=== PATIENT | female | born 1975 | race Caucasian/White ===

== ENCOUNTER 2016-09-09 09:39 | Outpatient (CLI) | payer OTHER ==
[~2016-09-09] VITALS: Ht 154.9 cm; Wt 89.1 kg
[~2016-09-09 09:39] MED LIST: IBUP-1542 PO; Lanolin TOP
[2016-09-09 09:47] VITALS: Ht 154.9 cm; Wt 89.1 kg
[2016-09-09 09:48] VITALS: BP 106/66
[2016-09-09] MEDS ORDERED: PREN1TAB17 PO (09:51)
[2016-09-09 11:53] LABS: ADD SCAN DIFF NO
[2016-09-09 11:56] LABS: BASOPHILS % 0.1 % (0.0-2.0); EOSINOPHILS # 0.1 10^3/ul (0.0-0.5); EOSINOPHILS % 0.9 % (0.0-7.0); HEMOGLOBIN 10.1 g/dl (12.0-16.0); LYMPHOCYTES # 1.9 10^3/ul (0.8-2.9); LYMPHOCYTES % 20.8 % (15.0-51.0); MEAN CORPUSCULAR HEMOGLOBIN 28.1 pg (29.0-33.0); MEAN CORPUSCULAR HGB CONC 33.7 g/dl (32.0-37.0); MEAN CORPUSCULAR VOLUME 83.3 fl (82.0-101.0); MEAN PLATELET VOLUME 9.7 fl (7.4-10.4); MONOCYTE # 0.6 10^3/ul (0.3-0.9); MONOCYTES % 6.7 % (0.0-11.0); NEUTROPHIL # 6.4 10^3/ul (1.6-7.5); NEUTROPHILS % 70.5 % (39.0-77.0); PLATELET COUNT 288 10^3/UL (140-415); RED CELL DISTRIBUTION WIDTH 14.1 % (11.5-14.5)
--- NOTE | 2016-09-09 12:29 | RADRPT ---
PROCEDURE: OB ultrasound for biophysical profile CLINICAL INDICATION: Back pain TECHNIQUE: Multiple sonographic images of the pelvis were obtained. Transabdominal views of the g ravid uterus are available for review. The images were reviewed on a PACS workstation. COMPARISON: None FINDINGS: breathing movement = 2/2 tone = 2/2 motion = 2/2 LIANG = 2/2 LIANG = 17.6 cm Single live intrauterine with cardiac activity of 147 bpm. position is transv erse with head to the maternal right. The placenta is posterior. IMPRESSION: 1. Single live intrauterine gestation. 2. Biophysical profile = 8/8. 3. LIANG = 17.6 cm. RPTAT: HH .Leia Llanes MD, Date Time Electronically viewed and signed by .Leia Llanes MD, on 09/09/2016 12:29 .G/
[2016-09-09 12:44] LABS: ADD UMIC NO; URINE BILIRUBIN (Dip) NEGATIVE (NEGATIVE); URINE BLOOD (Dip) NEGATIVE (NEGATIVE); URINE COLOR LT. YELLOW (YELLOW); URINE GLUCOSE (Dip) NEGATIVE (NEGATIVE); URINE KETONES (Dip) NEGATIVE (NEGATIVE); URINE LEUKOCYTE ESTERASE (Dip) NEGATIVE (NEGATIVE); URINE NITRITE (Dip) NEGATIVE (NEGATIVE); URINE TOTAL PROTEIN (Dip) NEGATIVE (NEGATIVE); URINE UROBILINOGEN (Dip) 0.2 E.U./dL (0.1-1.0)
--- NOTE | 2016-09-09 13:29 | TRIAGE ---
OB Triage Datetime Report Generated by CPN: 09/09/2016 13:29 Datetime: 09/09/2016 13:17 Labor Evaluation Frequency: 0 Monitor Mode: External Resting Tone [place]: Relaxed Heart Rate FHR Baseline Rate: 125 Monitor Mode: External US Accelerations: 15X15 Decelerations: None Category: Category I Datetime: 09/09/2016 12:22 Monitor Mode: External US Comments: AT BEDSIDE ADJUSTING US Datetime: 09/09/2016 11:39 Monitor Mode: External US Datetime: 09/09/2016 10:38 Labor Evaluation Frequency: 0 Monitor Mode: External Pattern: Normal: <= 5 Contractions in 10 Minutes Resting Tone [place]: Relaxed Heart Rate FHR Baseline Rate: 135 Variability: Moderate 6-25 bpm Accelerations: 15X15 Decelerations: None Category: Category I Pain Assessment Pain Scale: 6 Pain Presence: Intermittent Pain Type: Ache Pain Location: Back Pain Goal: 3 Pain Relief Measures: Comfort Measures Datetime: 09/09/2016 10:08 EGA: 30.1 Time Provider Notified: 09/09/2016 11:17 Datetime: 09/09/2016 09:53 Stage of : OB Triage Assessment Type: Triage Maternal Assessment Level of Consciousness: Fully Conscious DTR's/Clonus: DTRs 2+; No Clonus Headache: Denies Blurred Vision: No Respiratory Effort: Unlabored; Regular Rhythm; Equal Expansion Breath Sounds, Left: Clear and Equal Breath Sounds, Right: Clear and Equal Nausea/Vomiting: Denies RUQ Epigastric Pain: Denies Lower Extremities Edema: None Degree: None Upper Extremities Edema: None Degree: None Facial Edema: None Temperature Route: Oral Fall Risk Assessment History of Falling: (0) No Secondary Diagnosis: (0) No Ambulatory Aid: (0) Bedrest/Nurse Assist IV Therapy: (0) No Gait: (0) Normal/Bedrest/Immobile Mental Status: (0) Oriented to Own Ability Fall Score: 0 Fall Risk Score Definition: No Risk: No action required Monitor Mode: External Pattern: Normal: <= 5 Contractions in 10 Minutes Resting Tone [place]: Relaxed Heart Rate FHR Baseline Rate: 135 Monitor Mode: External US Category: Category I Pain Assessment Pain Scale: 6 Pain Presence: Intermittent Pain Type: Ache Pain Location: Back Pain Goal: 3 Pain Relief Measures: Comfort Measures Datetime: 09/09/2016 09:51 Time of Arrival: 09/09/2016 09:38 Arrived By: Ambulatory Arrived From: Home Chief Complaint: BACK PAIN Movement: Present Rupture of Membranes: Denies Vaginal Bleeding: None Vaginal Discharge: Denies Recent Sexual Intercouse: Denies Abdominal Trauma: Not Applicable Patient Complaints: Back Pain Additional Patient Complaints: EFM. CALL OB Time Provider Notified: 09/09/2016 11:17 Provider Notified: DR. LOZOYA Initial Plan: CBC, BPP/AFR UA C/S
== END 2016-09-09 13:40 | disposition home or self-care (01) ==
LOC: OBT 09:39 → L-D 09:40 → OBT 13:40
PROVIDERS: ATTEND Obstetrics & Gynecology
DX: O26.893 Other specified pregnancy related conditions, third trimester (principal); M54.9 Dorsalgia, unspecified; Z3A.30 30 weeks gestation of pregnancy
CPT/HCPCS: 36415; 76818; 81003; 85025; 87086; Z7500; G0463

== ENCOUNTER 2016-11-06 01:58 | Inpatient (IN) | payer OTHER ==
[~2016-11-06] VITALS: Ht 165.1 cm; Wt 90.0 kg
[~2016-11-06 01:58] MED LIST changes: -IBUP-1542 PO; -Lanolin TOP; +PREN1TAB17 PO
[2016-11-06 02:10] VITALS: RESP 20
[2016-11-06 02:13] VITALS: BP 133/73; PULSE 83
--- NOTE | 2016-11-06 02:29 | TRIAGE ---
OB Triage Datetime Report Generated by CPN: 11/06/2016 02:29 Datetime: 11/06/2016 02:20 Assessment Type: Admission Assessment Time of Arrival: 11/06/2016 01:55 EGA: 38.3 Arrived By: Stretcher; Ambulance Arrived From: Home Chief Complaint: w/ c/s x 2 to OB triage by ambulance stretcher extremely uncomfortable w/ sr om large amt clear fluid Movement: Present Contractions: Regular Rupture of Membranes: Ruptured Vaginal Bleeding: None Vaginal Discharge: Present Recent Sexual Intercouse: Denies Abdominal Trauma: Not Applicable Patient Complaints: Contractions Time Provider Notified: 11/06/2016 02:10 Provider Notified: Dr Dickerson Maternal Assessment Level of Consciousness: Fully Conscious DTR's/Clonus: DTRs 2+; No Clonus Headache: Denies Blurred Vision: No Respiratory Effort: Unlabored; Regular Rhythm; Equal Expansion Breath Sounds, Left: Clear and Equal Breath Sounds, Right: Clear and Equal Nausea/Vomiting: Denies RUQ Epigastric Pain: Denies Lower Extremities Edema: None Degree: None Upper Extremities Edema: None Degree: None Facial Edema: None Fall Risk Assessment History of Falling: (0) No Secondary Diagnosis: (0) No Ambulatory Aid: (0) Bedrest/Nurse Assist IV Therapy: (0) No Gait: (0) Normal/Bedrest/Immobile Mental Status: (0) Oriented to Own Ability Fall Score: 0 Fall Risk Score Definition: No Risk: No action required Pain Assessment Pain Scale: 10 Pain Presence: Intermittent Pain Type: Contraction Pain Location: Abdomen; Back Pain Goal: 2 Vaginal Exam Membrane Status: Ruptured Datetime: 09/09/2016 10:08 Time of Arrival: 11/06/2016 02:19 EGA: 38.3 Arrived By: Ambulance Datetime: 09/09/2016 09:53 Fall Score: 0 Fall Risk Score Definition: No Risk: No action required
[2016-11-06 02:30] LABS: ADD SCAN DIFF NO
[2016-11-06] MEDS ORDERED: METHYLERGONOVINE 0.2 MG INJ IM PRN ×2 (02:30→19:00)
[2016-11-06] MEDS ORDERED: CEFAZOLIN 2 GM/50 ML (PMX) 50 ML IV SCH (02:30)
[2016-11-06] MEDS ORDERED: ONDANSETRON 4 MG INJ IV ONE ×2 (02:30→03:30)
[2016-11-06] MEDS ORDERED: METOCLOPRAMIDE 10 MG INJ IV ONE ×2 (02:30→03:30)
[2016-11-06] MEDS ORDERED: CARBOPROST 250 MCG INJ IM PRN ×2 (02:30→19:00)
[2016-11-06] MEDS ORDERED: OXYTOCIN 30 UNITS/LR 500 ML IV PRN ×2 (02:30→19:00)
[2016-11-06] MEDS ORDERED: CITRIC ACID/NA CITRATE 30 ML CUP PO ONE ×2 (02:30→03:30)
[2016-11-06] MEDS ORDERED: MISOPROSTOL 200 MCG TAB PR PRN ×2 (02:30→19:00)
[2016-11-06] MEDS ORDERED: OXYTOCIN 30 UNITS/LR 500 ML IV SCH (02:30)
[2016-11-06 02:34] LABS: BASOPHILS % 0.2 % (0.0-2.0); EOSINOPHILS # 0.1 10^3/ul (0.0-0.5); EOSINOPHILS % 1.4 % (0.0-7.0); HEMATOCRIT 35.4 % (37.0-47.0); HEMOGLOBIN 11.8 g/dl (12.0-16.0); LYMPHOCYTES # 3.3 10^3/ul (0.8-2.9); LYMPHOCYTES % 31.9 % (15.0-51.0); MEAN CORPUSCULAR HEMOGLOBIN 27.1 pg (29.0-33.0); MEAN CORPUSCULAR HGB CONC 33.3 g/dl (32.0-37.0); MEAN CORPUSCULAR VOLUME 81.2 fl (82.0-101.0); MEAN PLATELET VOLUME 11.3 fl (7.4-10.4); MONOCYTE # 0.7 10^3/ul (0.3-0.9); MONOCYTES % 6.7 % (0.0-11.0); NEUTROPHIL # 6.1 10^3/ul (1.6-7.5); NEUTROPHILS % 59.1 % (39.0-77.0); PLATELET COUNT 295 10^3/UL (140-415); RED BLOOD COUNT 4.36 10^6/ul (4.20-5.40); RED CELL DISTRIBUTION WIDTH 14.3 % (11.5-14.5); WHITE BLOOD COUNT 10.3 10^3/ul (4.8-10.8)
[2016-11-06] MEDS ORDERED: CITRIC ACID/SODIUM CITRATE 15 ML CUP ONE (02:35)
[2016-11-06] MEDS: LACTATED RINGER'S 1,000 ML IV SCH ×3 (02:37→18:00)
[2016-11-06 02:44] LABS: INR 0.92; PARTIAL THROMBOPLASTIN TIME 24.7 Sec (25.0-35.0); PROTIME 12.4 Sec (12.2-14.2)
[2016-11-06] MEDS ORDERED: morphine SULFATE/PF (10 MG/10 ML) INJ ONE (03:01)
[2016-11-06] MEDS ORDERED: FENTAnyl 50 MCG/ML VIAL ONE (03:01)
[2016-11-06] MEDS ORDERED: EPHEDrine SULFATE 50 MG/5 ML SYG ONE (03:12)
[2016-11-06] MEDS ORDERED: LACTATED RINGER'S 1,000 ML IV ONE (03:17)
[2016-11-06] MEDS ORDERED: MEPERIDINE 25 MG INJ IV PRN (03:30)
[2016-11-06] MEDS ORDERED: KETOROLAC 30 MG INJ IV PRN ×3 (03:30)
[2016-11-06] MEDS ORDERED: ONDANSETRON 4 MG INJ IV PRN ×4 (03:30→19:00)
[2016-11-06] MEDS ORDERED: PROCHLORPERAZINE 10 MG INJ IV PRN ×3 (03:30)
[2016-11-06] MEDS ORDERED: HYDROmorphONE (0.2 MG/ML) 10ML SYG IV PRN (03:30)
[2016-11-06] MEDS ORDERED: FENTAnyl 50 MCG/ML VIAL IV PRN (03:30)
[2016-11-06] MEDS ORDERED: ZOLPIDEM 5 MG TAB PO PRN ×3 (03:30→19:00)
[2016-11-06] MEDS ORDERED: DIPHENHYDRAMINE 50 MG INJ IV PRN ×4 (03:30→19:00)
[2016-11-06] MEDS ORDERED: NALOXONE (0.4 MG/ML) INJ IV PRN ×2 (03:30)
[2016-11-06] MEDS ORDERED: HYDROmorphONE 1 MG/ML SYG IV PRN ×4 (03:30)
[2016-11-06] MEDS ORDERED: MIDAZOLAM 1 MG/ML 2 ML INJ ONE (03:32)
[2016-11-06] MEDS ORDERED: OXYTOCIN 30 UNITS/LR 500 ML IV ONE (03:50)
[2016-11-06 08:30] VITALS: BP 108/66; PULSE 70; RESP 18
[2016-11-06 12:00] VITALS: BP 95/60; PULSE 73; RESP 18
--- NOTE | 2016-11-06 13:01 | HP ---
Date/Time of Note Date/Time of Note DATE: 11/06/16 TIME: 12:55 OB - History Hx of Present Free Text/Dictation 40y.o at 38w3d who had X2 c/s srom with c/o severe pain, brought to triage via ambulance also desire to have tubal sterilization prepare to have RC/S and BTL Estimated Due Date: November 17, 2016 : 4 Para: 2 Spontaneous : 1 Therapeutic : 0 Care: Good Care Ultrasounds: Normal mid trimester US Obstetrical Complications: None Medical Complications: None Past Family/Social History * Past Medical, Surgical, Family and Obstetric Histories reviewed from chart. Blood Type: O+ Rubella: immune RPR/VDRL: Negative GBS Status: Negative HBsAG: Negative OB Admission Exam Vital Signs Vital Signs Vital Signs Date Time Temp Pulse Resp B/P Pulse Ox O2 Delivery O2 Flow Rate FiO2 11/06/16 02:13 83 133/73 11/06/16 02:10 98.0 20 Room Air Physical Exam HEENT: WNL Cervical Dilatation: None Effacement: 0% Membranes: Ruptured Amniotic Fluid: Clear Heart Rate: 140's Accelerations: Accelerations Present Varibility: Moderate Contractions on Admission: < 5 Minutes Apart Intensity: Moderate Last 72 hours Lab Results CBC & BMP 11/06/16 02:25 OB Assessment/Plan Other Assessment: IUP 38w3d X2 previous section srom desire to have tubal sterilization Plan: Section, Other (sterilization) SIMA GUTIÉRREZ MD November 06, 2016 13:01
--- NOTE | 2016-11-06 13:58 | OPR ---
DATE OF OPERATION: 11/06/2016 PREOPERATIVE DIAGNOSES: 1. , 38 weeks 3 days, with 2 previous sections and spontaneous rupture of membran es in early labor. 2. Multiparity for tubal sterilization. POSTOPERATIVE DIAGNOSES: 1. , 38 weeks 3 days, with 2 previous sections and spontaneous rupture of membran es in early labor. 2. Multiparity for tubal sterilization. 3. Delivered normal male , 4070 grams. PROCEDURE: Repeat low transverse section and the bilateral partial salpingectomy, fimbriec pavel. ANESTHESIA: Spinal. ANESTHESIOLOGIST: Dr. Rivera SURGEON: Janet Dickerson MD MOUNTER FLUTES AND PICCOLOS: Dr. Meza ESTIMATED BLOOD LOSS: Approximately 700 mL. PROCEDURE: Under proper induction of spinal anesthesia, the patient was placed in the frog position . Guevara catheter was introduced into the bladder and then repositioned to supine. Abdominal wall w as prepped and draped in usual aseptic manner. A transverse incision was made along the previous in cisional scar. Scar tissue was excised. Incision was carried down through the subcutaneous tissue to the anterior recti fascia which was incised transversely in length of the incision. Fascial flap was created by blunt and sharp dissection of tendinous attachment with difficulty due to the previo us 2 surgeries, and the rectus muscles and peritoneal cavity was entered. There was no si gnificant adhesion noted except the bladder peritoneum was pulled up to the uterine serosa, which wa s released by making an incision. It was made above the uterovesical reflection and the incision wa s carried down to reach the amniotic membrane, ruptured to reveal clear amniotic fluid. Incision was extended and a normal male was born from the left occiput transverse position. Mouth and nose were cleaned and cord was clamped and cut, handed to the respiratory care for further management. Cord blood was obtained. Placenta was removed manually. Cavity was completely explor ed and uterus was exteriorized, and uterine incision was closed with a #1 chromic catgut in continuo us manner and second layer using 0 chromic catgut in continuous manner. No bleeder noted. The righ t fallopian tube was grasped with a Tamara forceps and created loop of tube. This loop of tube was doubly ligated and the fimbria was separately clamped and cut and the loop of tube was excised. No bleeder noted. The same procedure was done on the left fallopian tube, backup was applied at the a vascular area in the mesosalpinx and created loop of tube. This loop of tube was doubly ligated wit h 0 plain and then fimbria was separately clamped and cut and the tied. No bleeder was noted. The uterus was relocated after the blood was removed from the operative field and sponge count taken which was correct. The parietal peritoneum was closed horizontally and during this closure, there was continuous bleeding from the muscle , which was the insertion area, and the rectus muscle i nsertion area which was not able to be controlled with multiple suture because of the muscle friabil ity. At this point, instead of closing the peritoneum, the parietal peritoneum opened and with the hands inside underneath the peritoneum and the muscle was attached to the fascia, which can be suppo rted between the parietal peritoneum and fascia, which was separately done. Then, the rest of the p arietal peritoneum was closed and the bleeding controlled. Fascia closed with #1 Vicryl in continuo us manner in 2 segments and subcutaneous tissue irrigated with water and this layer was approximated with 2-0 plain after adequate hemostasis was secured. The skin closed with a 3-0 Monocryl in a sub cuticular manner. Steri-Strip applied. A pressure dressing applied. Estimated blood loss approxim ately 700 mL. The patient withstood procedure and was sent to recovery in good condition. Dictated By: JANET DIAZ/FELIZ Conf#: [id number] DID#: [id number]
[2016-11-06 15:32] VITALS: BP 106/65; PULSE 64; RESP 19
[2016-11-06] MEDS ORDERED: LACTATED RINGER'S 1,000 ML IV SCH (18:31)
[2016-11-06] MEDS: OXYTOCIN 30 UNITS/LR 500 ML IV SCH (18:31)
[2016-11-06] MEDS ORDERED: LANOLIN 7 GM TUBE TOP PRN (19:00)
[2016-11-06 20:00] VITALS: BP 109/69; PULSE 87; RESP 18
[2016-11-07] VITALS: BP 107/78; PULSE 82; RESP 18
[2016-11-07] MEDS: OXYCODONE/ACETAMINOPHEN (5/325) TAB PO PRN ×3 (03:42→15:30)
[2016-11-07 04:00] VITALS: BP 119/72; PULSE 86; RESP 18
[2016-11-07] MEDS: IBUPROFEN 600 MG TAB PO SCH ×4 (06:31→23:38)
[2016-11-07 08:00] VITALS: BP 97/67; PULSE 80; RESP 18
[2016-11-07 08:21] LABS: ADD SCAN DIFF NO
[2016-11-07 08:34] LABS: BASOPHILS % 0.2 % (0.0-2.0); EOSINOPHILS % 0.2 % (0.0-7.0); HEMATOCRIT 31.6 % (37.0-47.0); HEMOGLOBIN 10.1 g/dl (12.0-16.0); LYMPHOCYTES # 1.8 10^3/ul (0.8-2.9); LYMPHOCYTES % 14.3 % (15.0-51.0); MEAN CORPUSCULAR HEMOGLOBIN 26.8 pg (29.0-33.0); MEAN CORPUSCULAR VOLUME 83.8 fl (82.0-101.0); MEAN PLATELET VOLUME 11.1 fl (7.4-10.4); MONOCYTE # 0.6 10^3/ul (0.3-0.9); MONOCYTES % 4.6 % (0.0-11.0); NEUTROPHIL # 10.3 10^3/ul (1.6-7.5); NEUTROPHILS % 80.1 % (39.0-77.0); PLATELET COUNT 261 10^3/UL (140-415); RED BLOOD COUNT 3.77 10^6/ul (4.20-5.40); RED CELL DISTRIBUTION WIDTH 14.9 % (11.5-14.5); WHITE BLOOD COUNT 12.8 10^3/ul (4.8-10.8)
[2016-11-07] MEDS: SENNA/DOCUSATE NA (8.6MG/50MG) TAB PO SCH ×2 (09:05→21:12)
[2016-11-07] MEDS: OXYTOCIN 30 UNITS/LR 500 ML IV SCH (10:05)
[2016-11-07 16:06] VITALS: BP 118/64; PULSE 75; RESP 18
[2016-11-07 19:30] VITALS: BP 104/68; PULSE 85; RESP 17
[2016-11-08] MEDS: OXYCODONE/ACETAMINOPHEN (5/325) TAB PO PRN ×4 (00:35→19:49)
--- NOTE | 2016-11-08 00:45 | QN ---
Documentation Comment pop day 1 afebrile ab soft bs presentext normal PAPO LOZOYA MD November 08, 2016 00:45
[2016-11-08 03:45] VITALS: BP 109/66; PULSE 82; RESP 18
[2016-11-08] MEDS: IBUPROFEN 600 MG TAB PO SCH ×4 (05:41→23:46)
[2016-11-08] MEDS: SENNA/DOCUSATE NA (8.6MG/50MG) TAB PO SCH ×2 (08:41→20:40)
[2016-11-08 08:45] VITALS: BP 122/75; PULSE 87; RESP 16
[2016-11-08 16:00] VITALS: BP 128/79; PULSE 74; RESP 16
[2016-11-08] MEDS ORDERED: NA PHOSPHATE/BIPHOS 133 ML ENEMA PR ONE (18:30)
[2016-11-08 19:45] VITALS: BP 119/82; PULSE 81; RESP 19
[2016-11-08 23:45] VITALS: BP 109/61; PULSE 74; RESP 20
[2016-11-09] MEDS: OXYCODONE/ACETAMINOPHEN (5/325) TAB PO PRN ×2 (02:27→09:22)
[2016-11-09 03:45] VITALS: BP 114/62; PULSE 62; RESP 19
[2016-11-09] MEDS: IBUPROFEN 600 MG TAB PO SCH ×2 (05:33→12:01)
[2016-11-09 08:10] VITALS: BP 125/76; PULSE 78; RESP 19
[2016-11-09] MEDS ORDERED: DIPHTH/TET/ACEL PERTUSS (ADULT) 0.5 ML VIAL IM* ONE (09:00)
[2016-11-09] MEDS ORDERED: MEASLES,MUMPS,RUBELLA VACCINE INJ SC* ONE (09:00)
[2016-11-09] MEDS: SENNA/DOCUSATE NA (8.6MG/50MG) TAB PO SCH (09:21)
--- NOTE | 2016-11-09 12:12 | PD.PPDC ---
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
--- NOTE | 2016-11-09 12:16 | DS ---
Date/Time of Note Date/Time of Note DATE: 11/09/16 TIME: 12:15 Discharge Summary Admission/Discharge Info Admit Date/Time November 06, 2016 at 01:59 Discharge Date/Time November 09 at 1215 Final Diagnosis Date 3 post repeat and BTL Patient Condition: Good Procedures Repeat and BTL Hx of Present Illness history of previous C-sections request for tubal ligation at the time of Hospital Course Satisfactory uneventful Home Meds Reported Medications Vit-Iron Fumarate-FA ( Tablet) 1 Each Tablet, 1 TAB PO DAILY, TAB 09/09/16 Follow-up Plan Appointment office in 4 days to discontinue sandra and postoperative checkup PAPO LOZOYA MD November 09, 2016 12:16
== END 2016-11-09 17:26 | disposition home or self-care (01) | DRG 766 ==
LOC: OBT 01:58 → L-D 01:58 → OBT 01:59 → L-D 01:59 → PP1 08:25
PROVIDERS: ADMIT Obstetrics & Gynecology; ATTEND Obstetrics & Gynecology
PROC: 0UB70ZZ Excision of Bilateral Fallopian Tubes, Open Approach (ICD-10-PCS; 2016-11-06)
PROC: 10D00Z1 Extraction of Products of Conception, Low, Open Approach (ICD-10-PCS; principal; 2016-11-06 03:30)
PROC: 3E0234Z Introduction of Serum, Toxoid and Vaccine into Muscle, Percutaneous Approach (ICD-10-PCS; 2016-11-09)
DX: O34.211 Maternal care for low transverse scar from previous cesarean delivery (principal); Z23 Encounter for immunization; Z30.2 Encounter for sterilization; Z3A.38 38 weeks gestation of pregnancy; Z37.0 Single live birth
CPT/HCPCS: 85025; 85610; 85730; 86592; 86850; 86900; 86901; 88302; 90715; 99464; G0463; J0690; J0780; J1885; J2250; J2274; J2405; J2590; J2765; J3010; J7120

== ENCOUNTER 2017-08-19 15:00 | Emergency (ER) | END 2017-08-19 17:54 | disposition home or self-care (01) ==